=== PATIENT | male | born 1985 | race Caucasian/White ===

== ENCOUNTER 2017-11-22 10:53 | Emergency (ER) | payer OTHER, SELFPAY ==
[2017-11-22] VITALS (8 sets, daily range): BP systolic 148–170; BP diastolic 87–104; PULSE 75–97; RESP 12–22; TEMP 37; O2SAT 96–98; BMI 29.4
--- NOTE | 2017-11-22 11:06 | EKG12_ITS ---
Test Reason : NEURO Blood Pressure : / mmHG Vent. Rate : 075 BPM Atrial Rate : 075 BPM P-R Int : 158 ms QRS Dur : 080 ms QT Int : 384 ms P-R-T Axes : 052 046 021 degrees QTc Int : 428 ms Normal sinus rhythm Normal ECG Confirmed by REY PATEL, MANUELA ([id number]), city editor MAGAN OCONNOR ([id number] on 11/26/2017 2:13:01 PM Referred By: ERIKA Confirmed By:MANUELA LE MD
--- NOTE | 2017-11-22 11:06 | CT_ITS ---
STUDY: CTA NECK WITH CONTRAST REASON FOR EXAM: Male, 32 years old. Syncope RADIATION DOSAGE (If Supplied By Facility): CTDIvol = ( 28.76 ) mGy, DLP = ( 1538.64 ) mGycm TECHNIQUE: CT angiography with multi-detector data acquisition was performed from the aortic arch to the skull base following intravenous administration of 75 ml of Isovue 370 contrast. MIP images were reconstructed from the axial data set. Post-processing of the angiographic images was performed, with multiplanar reformation and 3D reconstruction. Individualized dose optimization techniques were used for this CT. COMPARISON: None. FINDINGS: AORTIC ARCH: Normal visualized aortic arch. Normal origins of the brachiocephalic, left common carotid, and left subclavian arteries. RIGHT CAROTID ARTERIES: Normal right common carotid artery (CCA). Normal right common carotid bulb. Normal origin of the right internal carotid (ICA) artery without a hemodynamically significant stenosis. Normal visualized cervical portion of the right internal carotid artery. Normal origin of the right external carotid artery (ECA). LEFT CAROTID ARTERIES: Normal left common carotid artery (CCA). Normal left common carotid bulb. Normal origin of the left internal carotid (ICA) artery without a hemodynamically significant stenosis. Normal visualized cervical portion of the left internal carotid artery. Normal origin of the left external carotid artery (ECA). VERTEBRAL ARTERIES: There is enhancement within the bilateral vertebral arteries with a small right vertebral artery, and a dominant left vertebral artery. IMPRESSION: No CTA evidence of carotid artery stenosis. Very tiny right vertebral, normal left vertebral artery. Source images do not show evidence of a suspicious enhancing lesion, airway narrowing or deviation. Electronically Signed: Kit Chaidez MD at 12:28 EDT , Service support , STUDY: CTA OF THE BRAIN REASON FOR EXAM: Male, 32 years old. Syncope RADIATION DOSAGE (If Supplied By Facility): CTDIvol = ( 28.76 ) mGy, DLP = ( 1538.64 ) mGycm TECHNIQUE: CT angiography was performed with a multi-detector CT scanner. Data acquisition was obtained from the skull base through the vertex following intravenous administration of 75 ml of Isovue 370. MIP images were reconstructed from the axial data set. Post-processing of the angiographic images was performed, with multiplanar reformation and 3D reconstruction. Individualized dose optimization techniques were used for this CT. COMPARISON: None. FINDINGS: Normal bilateral petrous carotid arteries. Normal right cavernous carotid artery with a normal supraclinoid bifurcation. Normal left cavernous carotid artery with a normal supraclinoid bifurcation. Normal right A1 segments of the anterior cerebral artery. Normal left A1 segments of the anterior cerebral artery. Normal intact anterior communicating artery (ACOM). Normal bilateral A2 segments of the anterior cerebral arteries. Normal right M1 and M2 segments of the middle cerebral arteries, with a normal M1 bifurcation. Normal left M1 and M2 segments of the middle cerebral arteries, with a normal M1 bifurcation. Normal right posterior communicating artery (PCOM). Normal left posterior communicating artery (PCOM). Normal bilateral vertebral arteries. Normal basilar artery with a normal basilar bifurcation. The visualized bilateral superior cerebellar (SCA) arteries are normal. Normal bilateral P1, P2 and visualized P3 segments of the posterior cerebral arteries. There is no demonstrated aneurysm of the [place] of [place]. There is no demonstrated abnormality of the visualized brain. CT/CTA Neck W/WO Contrast IMPRESSION: Normal [place] of [place] without a demonstrated aneurysm or hemodynamically significant stenosis. Electronically Signed: Kit Chaidez MD at 12:27 EDT , Service support ,
--- NOTE | 2017-11-22 11:06 | CT_ITS ---
STUDY: CTA NECK WITH CONTRAST REASON FOR EXAM: Male, 32 years old. Syncope RADIATION DOSAGE (If Supplied By Facility): CTDIvol = ( 28.76 ) mGy, DLP = ( 1538.64 ) mGycm TECHNIQUE: CT angiography with multi-detector data acquisition was performed from the aortic arch to the skull base following intravenous administration of 75 ml of Isovue 370 contrast. MIP images were reconstructed from the axial data set. Post-processing of the angiographic images was performed, with multiplanar reformation and 3D reconstruction. Individualized dose optimization techniques were used for this CT. COMPARISON: None. FINDINGS: AORTIC ARCH: Normal visualized aortic arch. Normal origins of the brachiocephalic, left common carotid, and left subclavian arteries. RIGHT CAROTID ARTERIES: Normal right common carotid artery (CCA). Normal right common carotid bulb. Normal origin of the right internal carotid (ICA) artery without a hemodynamically significant stenosis. Normal visualized cervical portion of the right internal carotid artery. Normal origin of the right external carotid artery (ECA). LEFT CAROTID ARTERIES: Normal left common carotid artery (CCA). Normal left common carotid bulb. Normal origin of the left internal carotid (ICA) artery without a hemodynamically significant stenosis. Normal visualized cervical portion of the left internal carotid artery. Normal origin of the left external carotid artery (ECA). VERTEBRAL ARTERIES: There is enhancement within the bilateral vertebral arteries with a small right vertebral artery, and a dominant left vertebral artery. IMPRESSION: No CTA evidence of carotid artery stenosis. Very tiny right vertebral, normal left vertebral artery. Source images do not show evidence of a suspicious enhancing lesion, airway narrowing or deviation. Electronically Signed: Kit Chaidez MD at 12:28 EDT , Service support , STUDY: CTA OF THE BRAIN REASON FOR EXAM: Male, 32 years old. Syncope RADIATION DOSAGE (If Supplied By Facility): CTDIvol = ( 28.76 ) mGy, DLP = ( 1538.64 ) mGycm TECHNIQUE: CT angiography was performed with a multi-detector CT scanner. Data acquisition was obtained from the skull base through the vertex following intravenous administration of 75 ml of Isovue 370. MIP images were reconstructed from the axial data set. Post-processing of the angiographic images was performed, with multiplanar reformation and 3D reconstruction. Individualized dose optimization techniques were used for this CT. COMPARISON: None. FINDINGS: Normal bilateral petrous carotid arteries. Normal right cavernous carotid artery with a normal supraclinoid bifurcation. Normal left cavernous carotid artery with a normal supraclinoid bifurcation. Normal right A1 segments of the anterior cerebral artery. Normal left A1 segments of the anterior cerebral artery. Normal intact anterior communicating artery (ACOM). Normal bilateral A2 segments of the anterior cerebral arteries. Normal right M1 and M2 segments of the middle cerebral arteries, with a normal M1 bifurcation. Normal left M1 and M2 segments of the middle cerebral arteries, with a normal M1 bifurcation. Normal right posterior communicating artery (PCOM). Normal left posterior communicating artery (PCOM). Normal bilateral vertebral arteries. Normal basilar artery with a normal basilar bifurcation. The visualized bilateral superior cerebellar (SCA) arteries are normal. Normal bilateral P1, P2 and visualized P3 segments of the posterior cerebral arteries. There is no demonstrated aneurysm of the [place] of [place]. There is no demonstrated abnormality of the visualized brain. CT/CTA Head W/WO Contrast IMPRESSION: Normal [place] of [place] without a demonstrated aneurysm or hemodynamically significant stenosis. Electronically Signed: Kit Chaidez MD at 12:27 EDT , Service support ,
--- NOTE | 2017-11-22 11:06 | NURSING ---
NO OLD EKGS
[2017-11-22 11:27] LABS: Absolute Lymphocyte Count 1.29 X10^3/ul (0.83-4.51); Absolute Neutrophil Count 6.9 X10^3/uL (2.0-7.7); Basophil# 0.04 X10^3/uL; Basophil% 0.4 % (0-1); Eosinophil# 0.06 X10^3/uL; Eosinophils% 0.7 % (0-5); Hematocrit 48.4 % (40-54); Hemoglobin 17.2 g/dl (13.0-16.5); Lymphocyte # 1.29 X10^3/ul (4.0); Lymphocyte % 14.4 % (19-41); Mean Corp Hgb Conc 35.5 g/gl (32-36); Mean Corpuscular Hgb 33.7 pg (27.0-32.0); Mean Corpuscular Volume 94.9 fL (80-94); Mean Platelet Vol. 9.8 fl (6.2-12.0); Monocyte# 0.69 X10^3/uL; Monocyte% 7.7 % (0-10); Neutrophil # 6.88 X10^3/uL (2.7-7.7); Neutrophil % 76.7 % (47-70); Platelet Count 230 K/mm3 (150-450); Prothrombin Time (Protime)PT. 13.1 SECONDS (11.7-14.9); RBC Distribution Width CV 12.1 % (11.6-14.6)
[2017-11-22 11:28] LABS: Partial Thromboplast Time 25.8 Seconds (24.1-36.2)
[2017-11-22 11:29] LABS: POSITIVE COUNT NO; POSITIVE DIFFERENTIAL NO; POSITIVE MORPHOLOGY NO
--- NOTE | 2017-11-22 11:30 | RAD_ITS ---
STUDY: X-RAY CHEST REASON FOR EXAM: Male, 32 years old. Numbness, tingling, blurred vision TECHNIQUE: Single AP portable view of the chest. COMPARISON: None. FINDINGS: EKG leads overlie the chest The lungs are clear and expanded. There is no demonstrated pleural abnormality. Normal size heart. Normal mediastinum and yong. Normal visualized pulmonary arteries. Normal visualized aortic arch and descending thoracic aorta. Normal visualized thoracic spine. Normal visualized ribs, clavicles, and shoulders. There is no demonstrated abnormality of the visualized soft tissue structures of the upper abdomen. RAD/Chest 1 View IMPRESSION: Normal x-ray examination of the chest. Electronically Signed: Kit Chaidez MD at 11:53 EDT , Service support ,
[2017-11-22 11:37] LABS: Anion Gap 11 (5-15); BUN 8 mg/dL (7-18); BUN/Creat Ratio 9.8 RATIO (10-20); Calcium,Total 9.2 mg/dL (8.5-10.1); Chloride 98 mmol/L (98-107); Creatinine, Serum 0.81 mg/dL (0.70-1.30); EST Glomerular Filtration Rate 118 mL/min (>60); Est Glom Filt Rate - Afr Amer 143 mL/min (>60); Estimated Creatinine Clearance 129.01 ml/min; Glucose 103 mg/dL (74-106); Potassium 3.6 mmol/L (3.5-5.1); Sodium Level 135 mmol/L (136-145)
--- NOTE | 2017-11-22 11:41 | ED.DCSUM_ITS ---
- ER Visit Summary Date of Service: 11/22/17 Chief Complaint: [Vision changes and numbness and tingling] History of Present Illness: The patient is a 32 M [who presents the emergency department with an episode while he was riding a tractor where his depth perception was off and he could not quite see where he was stepping if it was lower or higher as well as getting some numbness and tingling that was radiating up his leg and back down and up his arms and back down. No chest pain or shortness of breath he was a little bit lightheaded no difficulty with speech no balance problems. No visual field defect. He does have a history of hypertension and hyperlipidemia he does smoke. His parents are quite concerned as his brother at 40 from a heart attack they have a strong family history of cardiovascular disease] Physical Examination: [] Blood pressure 158/104 other vitals within normal limits WN WD NAD PERRL EOMI MMM NECK supple and nontender, no masses RRR no murmur rub or gallop, no peripheral edema, symmetric radial pulses CTAB no respiratory distress ABDOMEN is soft and nontender, normal bowel sounds, no distension, no rebound or guarding SKIN is warm and dry no rashes Alert and Oriented x3, CN II-XII in tact, no motor or sensory deficits, gait normal NIH is 0 No lymphadenopathy Test Results: [] Emergency Department Course and Treatment: [EKG was sinus at a rate of 75 with T -wave inversions in lead III but no other leads. Family was concerned about carotid arteries and they show no stenosis on CTA of the head and neck. CT of the head was unremarkable. Troponin was normal. Three-hour troponin was normal. Patient remained asymptomatic while in the emergency department. I am not sure the cause of the patient's symptoms I think it may have been positional or being out in the sun and the on the tractor at this time I do think he is safe for discharge but I did ask him to follow-up with Dr. Herrmann and they were invited to come back to the emergency department with any issues.] Treatment Plan: [] Disposition: [Discharge] Impression: [1. Near syncope 2. Paresthesias] This note was generated with [employer] software. It may contain incorrect words, spelling, and punctuation that were not noted in review of the chart prior to signing ED Disposition - Plan for ED Patient: Chief Complaint: Numb/Ting Referrals: Care Physician,No Primary [Primary Care Provider] -
--- NOTE | 2017-11-22 14:35 | ED.DEP ---
ED Disposition - Plan for ED Patient: Chief Complaint: Numb/Ting Instructions: ED Near Syncope Unkn, ED Paraesthesias Referrals: Mario Caceres MD [STAFF PHYSICIAN] - 3-5 Days
== END 2017-11-22 14:42 | disposition home or self-care (01) ==
PROVIDERS: Emergency Provider Emergency Medicine
DX: R55 Syncope and collapse (principal); R20.2 Paresthesia of skin; F17.200 Nicotine dependence, unspecified, uncomplicated; E66.9 Obesity, unspecified
CPT/HCPCS: 70496; 70498; 71045; 80048; 84484; 85025; 85610; 85730; 93005; 96360; 96361; 99285; J7030; J7040; Q9967; A4216

== ENCOUNTER 2018-12-17 16:11 | Emergency (ER) | payer OTHER, SELFPAY ==
[2018-12-17 16:12] VITALS: BP 170/115; BP 171/113; PULSE 85; RESP 178; TEMP 37.4; O2SAT 96; BMI 25.2
[2018-12-17 16:23] VITALS: BP 168/122; PULSE 82; RESP 18; O2SAT 96
--- NOTE | 2018-12-17 16:30 | EKG12_ITS ---
Test Reason : CP Blood Pressure : / mmHG Vent. Rate : 066 BPM Atrial Rate : 066 BPM P-R Int : 150 ms QRS Dur : 084 ms QT Int : 384 ms P-R-T Axes : 056 059 039 degrees QTc Int : 402 ms Normal sinus rhythm Possible Left atrial enlargement Borderline ECG Confirmed by DESEAN BERNARDO ([id number]), greeting card editor TANO CRAIG ([id number]) on 12/22/2018 2:03:45 PM Referred By: Confirmed By:DESEAN BERNARDO
--- NOTE | 2018-12-17 16:34 | ED.DCSUM_ITS ---
History of Present Illness <Vincent Garcia - Last Filed: 12/17/18 17:20> Informant: Patient Onset: Today Context: Gradual Onset Current Severity: Mild Maximum Severity: Severe Narrative: Patient is a 33-year-old male with history of diet-controlled hypertension, hyperlipidemia and family history of coronary artery disease presenting from home after an episode of dictations. Patient states he was sitting at home when he started to feel his heart racing. He then started to feel sweaty and noticed that he had numbness around his mouth and in his hands and feet. Patient still having the numbness but his other symptoms have since resolved. This occurred approximately 1 hour prior to arrival. Patient states he has not had symptoms like this before. He notes yesterday he was feeling like he was coming down with a cold. Patient denies any swelling in his legs. He denies any history of pulmonary movement DVT. He denies any chest pain or shortness of breath. Patient denies taking any medications with a [id number] or prescribed. He states he currently does not have a primary care provider. He has had a negative stress test in the past, approximately 1 year ago. Patient denies any other complaints or concerns at this time. <GeorgecarolineChasidy - Last Filed: 12/17/18 18:01> Chief Complaint: Palpitations Past Medical History <JoseVincent - Last Filed: 12/17/18 17:20> Past Medical History: - - Hypertension, hyperlipidemia Smoking Status: Former smoker <MariumChasidy - Last Filed: 12/17/18 18:01> - Allergies and Home Meds Allergies/Adverse Reactions: Allergies No Known Allergies Allergy (Verified 12/17/18 16:12) Primary Care Physician: Care Physician,No Primary [Primary Care Provider] - Review of Systems All systems negative except as indicated General: Denies: Chills, Fever, Sweats Eyes: Denies: Visual changes - bilaterally, Diplopia ENT: Denies: Rhinorrhea, Sore throat Cardiovascular: Denies: Chest pain Respiratory: Denies: Dyspnea, Cough, Dyspnea on exertion Gastrointestinal: Reports: Diarrhea - yesterday. Denies: Abdominal pain, Nausea, Vomiting, Melena, Hematochezia Genitourinary: Denies: Dysuria, Hematuria, Frequency Musculoskeletal: Denies: Back pain, Extremity Pain Skin: Denies: Rash, Wounds Neurological: Reports: Parasthesia - Hands and feet. Denies: Headache, Weakness, Numbness Psych: Denies: Anxiety <Chasidy Causey - Last Filed: 12/17/18 18:01> Physical Exam Vital Signs/Narrative: Vital Signs Temp Pulse Resp BP Pulse Ox 12/17/18 16:23 82 18 168/122 H 96 12/17/18 16:12 99.3 F H 85 178 H 171/113 H 96 <JoseVincent - Last Filed: 12/17/18 17:20> Vital Signs/Narrative: Vital Signs Temp Pulse Resp BP Pulse Ox 12/17/18 16:23 82 18 168/122 H 96 12/17/18 16:12 99.3 F H 85 178 H 171/113 H 96 General: Well nourished, Well developed, No Acute Distress Head: Normocephalic, Atraumatic Eyes: Perrl, EOMI ENT: Moist mucous membranes, No rhinorrhea Neck: Supple, Nontender Cardiovascular: Regular rate, Regular rhythm, No murmurs Respiratory: No distress, CTA bilaterally, Chest nontender Abdomen: Soft, Nontender, Nondistended, Normal bowel sounds Back: Nontender, Normal Inspection Extremities: Nontender, No edema Skin: Normal color, No rash Neurological: Alert, Oriented x3, Cranial nerves II-XII grossly intact, Normal Strength, Normal Sensation Psychological: Normal affect, Normal Mood <Chasidy Causey - Last Filed: 12/17/18 18:01> Diagnostic/Tx/Re-eval - Medical Decision Making Patient with palpitations. No chest pain. No shortness of breath. He himself has no cardiac history. He has had mild diarrhea the last several days. I am evaluating this patient with resident. Blood pressure elevated but currently that is resolving on its own. HEENT exam unremarkable. Neck nontender. No thyromegaly. Lungs clear to auscultation. Heart regular rhythm no murmur. Abdomen soft nontender normal bowel sounds no peritoneal signs. Calves nontender no edema nor any cords. Neurologically is awake and alert with no focal motor deficits. EKG is sinus rhythm rate is 66. Chemistries so sodium 131. Hemoglobin is 18 with normal white count. Chest x-ray is normal cardiac silhouette mediastinum. Impression: 1. Acute palpitations uncertain etiology 2. Mild dehydration <Vincent Garcia - Last Filed: 12/17/18 17:20> Chest X-Ray - ED: 2 View, Read by ED Physician, Read by Radiologist - Rhythm Strip Rhythm Strip: Sinus Rhythm Rate: 66 Ectopy: None - EKG Initial EKG Interpretation: Sinus Rhythm - Normal sinus rhythm at a rate of 66 MO interval 150 QRS 84 QT/QTc 384/402 Normal axis Nonspecific T wave inversion lead III No change compared to prior EKG on 11/22/2017 Interpreted by emergency medicine physician, No Acute Injury Pattern Prior: Unchanged - Medical Decision Making Patient evaluated for paresthesias as well as palpitations. He appears nontoxic in no acute distress. EKG does not show any ischemic changes. He has normal rhythm on telemetry with no ectopy. Patient is mildly dehydrated. He is PE RC negative. D-dimer is not obtained and I do not suspect PE as a cause of his symptoms. Patient is encouraged to follow-up with a verbalizes agreement and understand this plan. Patient is counseled on signs and symptoms requiring return to the emergency room. Patient verbalizes agreement and understand this plan. Patient discharged home in stable and improved condition. <Chasidy Causey - Last Filed: 12/17/18 18:01> ED Disposition <Vincent Garcia - Last Filed: 12/17/18 17:20> <Chasidy Causey - Last Filed: 12/17/18 18:01> - Plan for ED Patient: Disposition: Home or Assisted Living Diagnosis: Palpitations with regular cardiac rhythm, Dehydration Instructions: Palpitations Referrals: Doctor,Your [STAFF PHYSICIAN] - Additional Instructions: Call your primary care doctor to follow-up within the next week. Return to emergency room if you develop worsening chest pain, difficulty breathing or ot her new/worsening symptoms. Make sure you drink plenty of fluids.
[2018-12-17 16:43] LABS: Absolute Lymphocyte Count 1.74 X10^3/uL (0.83-4.51); Absolute Neutrophil Count 4.7 X10^3/uL (2.0-7.7); Basophil# 0.05 X10^3/uL; Basophil% 0.6 % (0-1); Eosinophil# 0.13 X10^3/uL; Eosinophils% 1.7 % (0-5); Hematocrit 51.6 % (40-54); Lymphocyte # 1.74 X10^3/ul (4.0); Lymphocyte % 22.2 % (19-41); Mean Corp Hgb Conc 35.5 g/dL (32-36); Mean Corpuscular Volume 95.7 fL (80-94); Mean Platelet Vol. 9.5 fl (6.2-12.0); Monocyte# 1.16 X10^3/uL; Monocyte% 14.8 % (0-10); NRBC Flagged by Analyzer 0 % (0-5); Neutrophil # 4.74 X10^3/uL (2.7-7.7); Neutrophil % 60.3 % (47-70); Platelet Count 252 K/mm3 (150-450); RBC Distribution Width CV 11.7 % (11.6-14.6); RBC Distribution Width SD 40.8 fl (35.1-43.9); Red Blood Count 5.39 M/mm3 (4.6-6.2); White Blood Count 7.9 K/mm3 (4.4-11.0)
[2018-12-17 16:53] LABS: Hemoglobin 18.3 g/dL (13.0-16.5)
[2018-12-17] MEDS: 0.9% Normal Saline 1,000 ML 1000 ML IV (16:58)
[2018-12-17 17:01] LABS: Anion Gap 10 (5-15); BUN 9 mg/dL (7-18); BUN/Creat Ratio 10.8 RATIO (10-20); Calcium,Total 9.2 mg/dL (8.5-10.1); Chloride 95 mmol/L (98-107); Creatinine, Serum 0.84 mg/dL (0.70-1.30); EST Glomerular Filtration Rate 114 mL/min (>60); Est Glom Filt Rate - Afr Amer 138 mL/min (>60); Estimated Creatinine Clearance 127.42 ml/min; Glucose 88 mg/dL (74-106); Potassium 3.3 mmol/L (3.5-5.1); Sodium Level 131 mmol/L (136-145); Thyroid Stim Hormone (TSH) 1.42 uIU/mL (0.358-3.74)
--- NOTE | 2018-12-17 17:12 | RAD_ITS ---
STUDY: X-RAY CHEST REASON FOR EXAM: Male, 33 years old. Palpitations TECHNIQUE: PA and lateral views of the chest COMPARISON: X-ray chest November 22, 2017 FINDINGS: The lungs are clear. There are no pleural effusions. There is no pneumothorax. The heart is normal in size. The visualized osseous structures are within normal limits. RAD/Chest PA and Lateral IMPRESSION: No acute thoracic pathology. Electronically Signed: Trevor Moon, at 17:35 EDT Tel , Service support ,
[2018-12-17 17:42] VITALS: BP 151/99; PULSE 72; RESP 16; O2SAT 94
[2018-12-17 18:21] VITALS: BP 151/99; PULSE 80; RESP 16; O2SAT 97
--- NOTE | 2018-12-17 18:21 | ED.RN ---
IV DC'ED, CATHETER INTACT, SMALL GAUZE DRESSING PLACED. DISCHARGE INSTRUCTIONS GIVEN TO AND REVIEWED WITH PATIENT, PATIENT DENIES QUESTIONS OR CONCERNS AND VOICES UNDERSTANDING OF DISCHARGE INSTRUCTIONS. PT AMBULATES OUT OF ROOM WITHOUT DIFFICULTY.
[2018-12-18 12:02] LABS: Pathologist Review Reviewed
== END 2018-12-17 18:22 | disposition home or self-care (01) ==
PROVIDERS: Emergency Provider Emergency Medicine
DX: R00.2 Palpitations (principal); E86.0 Dehydration; I10 Essential (primary) hypertension; I25.10 Atherosclerotic heart disease of native coronary artery without angina pectoris; Z87.891 Personal history of nicotine dependence
CPT/HCPCS: 71046; 80048; 84443; 84484; 85025; 93005; 96360; 99285; J7030; A4216